=== PATIENT | female | born 1995 | race Caucasian/White ===

== ENCOUNTER 2019-11-13 15:28 | Emergency (ER) | payer MEDICAID, OTHER ==
[~2019-11-13] VITALS: Ht 152.4 cm; Wt 127.0 kg
[2019-11-13 15:34] VITALS: BP 155/86
[2019-11-13] MEDS ORDERED: LORazepam 0.5 MG tablet PO STA (17:34)
[2019-11-13] MEDS ORDERED: LORA-269 PO (23:33)
== END 2019-11-13 17:51 | disposition home or self-care (01) ==
LOC: ER 15:28
DX: R20.0 Anesthesia of skin (principal); R20.2 Paresthesia of skin; R51 Headache; F10.99 Alcohol use, unspecified with unspecified alcohol-induced disorder; Z79.899 Other long term (current) drug therapy; Y90.9 Presence of alcohol in blood, level not specified
CPT/HCPCS: 99282

== ENCOUNTER 2019-11-13 20:57 | Emergency (ER) | payer MEDICAID, OTHER ==
[~2019-11-13] VITALS: Ht 152.4 cm; Wt 127.1 kg
[2019-11-13] MEDS ORDERED: LORazepam 1 MG tablet PO ONE (22:25)
[2019-11-13 23:28] VITALS: BP 138/92
[2019-11-13] MEDS ORDERED: LORA-269 PO (23:33)
== END 2019-11-13 23:43 | disposition home or self-care (01) ==
LOC: ER 20:58
DX: F41.9 Anxiety disorder, unspecified (principal); F10.99 Alcohol use, unspecified with unspecified alcohol-induced disorder; Z79.899 Other long term (current) drug therapy; Y90.9 Presence of alcohol in blood, level not specified
CPT/HCPCS: 99284

== ENCOUNTER 2022-02-08 17:57 | Emergency (ER) | payer MEDICAID, OTHER ==
[~2022-02-08] VITALS: Ht 152.4 cm; Wt 121.0 kg
[~2022-02-08 17:57] MED LIST: LORA-269 PO
[2022-02-08 19:23] VITALS: BP 134/78
== END 2022-02-08 19:24 | disposition home or self-care (01) ==
LOC: ER 17:58
DX: A15.9 Respiratory tuberculosis unspecified (principal); Z72.89 Other problems related to lifestyle; Z79.899 Other long term (current) drug therapy
CPT/HCPCS: 71046; 99283